=== PATIENT | female | born 1980 | race Caucasian/White ===

== ENCOUNTER 2024-05-26 04:14 | Emergency (ER) | payer MEDICAID, SELFPAY ==
[2024-05-26 04:18] VITALS: BP 121/82; PULSE 114; RESP 18; TEMP 36.2; O2SAT 95; BMI 26.2
--- NOTE | 2024-05-26 04:31 | XR_ITS ---
Examination: Tibia-Fibula, left , 2 views Technique: Tibia-fibula AP lateral 2 views Date and time of exam: May 26, 2024 0440 hrs. Indications: Injury to the lower leg today, lower leg pain. Findings: No acute fracture No dislocation No foreign body Impression: No acute fracture
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
== END 2024-05-26 05:43 ==
PROVIDERS: Emergency Provider Emergency Medicine; PCP Family Medicine
DX: Z02.89 Encounter for other administrative examinations (principal); S80.12XA Contusion of left lower leg, initial encounter; V89.2XXA Person injured in unspecified motor-vehicle accident, traffic, initial encounter
CPT/HCPCS: 73590; 99283